=== PATIENT | female | born 1985 | race Two or more races ===

== ENCOUNTER 2017-06-10 20:25 | Emergency (ER) | payer MEDICAID ==
[~2017-06-10] VITALS: Ht 162.6 cm; Wt 77.0 kg
[2017-06-10] MEDS ORDERED: KETOROLAC 30MG/ML VIAL IV STA (22:42)
[2017-06-10] MEDS ORDERED: ONDANSETRON HCL 4MG/2ML VIAL IV STA (22:42)
[2017-06-10] MEDS ORDERED: FAMOTIDINE 20MG/2ML VIAL IV ONE (22:45)
[2017-06-10 23:16] LABS: BASOPHILS % 0.5 % (0.0-2.0); EOSINOPHILS % 0.7 % (0.0-5.0); HEMATOCRIT. 35.4 % (36.0-48.0); HEMOGLOBIN. 12.1 g/dL (12.0-16.0); LYMPHOCYTES % 16.4 % (20.0-50.0); MEAN CORPUSCULAR HEMOGLOBIN 31.2 pg (28.0-32.0); MEAN CORPUSCULAR VOLUME 91.5 fL (81.0-99.0); MEAN PLATELET VOLUME 8.3 fl (7.4-10.4); MONOCYTES % 5.7 % (2.0-8.0); NEUTROPHILS % 76.7 % (40.0-76.0); PLATELET 272 x1000/uL (130-400); RED BLOOD CELL COUNT 3.87 mill/uL (4.2-5.4); RED CELL DISTRIBUTION WIDTH 12.4 % (11.6-14.6)
[2017-06-10 23:22] LABS: CHLORIDE 110 mEq/L (98-107)
[2017-06-10 23:25] LABS: HCG SCREEN NEGATIVE
[2017-06-10 23:26] LABS: CARBON DIOXIDE 29 mEq/L (21-32)
[2017-06-10 23:57] LABS: CLARITY URINE CLEAR (CLEAR); COLOR URINE YELLOW (YELLOW); GLUCOSE URINE NEGATIVE (NEGATIVE); KETONES URINE NEGATIVE (NEGATIVE); LEUKOCYTE ESTERASE URINE NEGATIVE (NEGATIVE); NITRITE URINE NEGATIVE (NEGATIVE); OCCULT BLOOD URINE TRACE (NEGATIVE); PROTEIN URINE TRACE (NEGATIVE); SPECIFIC GRAVITY URINE 1.031 (1.005-1.030); UROBILINOGEN URINE 0.2 E.U./dL (0.2-1.0)
[2017-06-11] MEDS ORDERED: TRAMADOL 50MG TABLET PO ONE (02:00)
[2017-06-11 02:41] VITALS: BP 117/70
== END 2017-06-11 03:04 | disposition home or self-care (01) ==
LOC: ER 20:36
DX: R10.13 Epigastric pain (principal); R11.2 Nausea with vomiting, unspecified
CPT/HCPCS: 36415; 76830; 76856; 80053; 81001; 83690; 84703; 85025; 96374; 96375; 99285; J1885; J2405; J3490; Z7610